=== PATIENT | male | born 1935 | race Asian ===

== ENCOUNTER 2018-03-22 19:26 | Emergency (ER) | payer OTHER, MEDICAID ==
[~2018-03-22] VITALS: Ht 167.6 cm; Wt 59.1 kg
[~2018-03-22 19:26] MED LIST: DIOVAN; METFORMIN; METOPROLOL
[2018-03-22] MEDS ORDERED: ASPI-556 PO (19:39)
[2018-03-22] MEDS ORDERED: METF500T6 PO (19:39)
[2018-03-22] MEDS ORDERED: ROSU20 PO (19:39)
[2018-03-22] MEDS ORDERED: LOSA50TA37 PO (19:39)
[2018-03-22 19:43] LABS: GLUCOSE,POINT OF CARE 125 MG/DL (70-110)
[2018-03-22] MEDS ORDERED: ACETAMINOPHEN 500 MG TABLET PO ONE (20:30)
[2018-03-22] MEDS ORDERED: POVIDONE-IODINE 10% 15 ML SOLUTION UD TP ONE (20:30)
[2018-03-22 21:01] VITALS: BP 125/68
== END 2018-03-22 21:11 | disposition home or self-care (01) ==
LOC: EMS 19:30
DX: S91.151A Open bite of right great toe without damage to nail, initial encounter (principal); I10 Essential (primary) hypertension; E11.9 Type 2 diabetes mellitus without complications; Z79.899 Other long term (current) drug therapy; Z79.82 Long term (current) use of aspirin; W54.0XXA Bitten by dog, initial encounter; Y93.89 Activity, other specified; Y92.098 Other place in other non-institutional residence as the place of occurrence of the external cause; Y99.8 Other external cause status
CPT/HCPCS: 99283